=== PATIENT | male | born 1970 | race Caucasian/White ===

== ENCOUNTER → 2024-03-20 16:12 | Outpatient (REF) | payer BC, SELFPAY | LOC: RAD 16:12 | PROVIDERS: ATTENDING PHYSICIAN Nurse Practitioner | DX: R63.4 Abnormal weight loss (principal); R19.8 Other specified symptoms and signs involving the digestive system and abdomen; R10.32 Left lower quadrant pain | CPT/HCPCS: 74177; Q9967 ==

== ENCOUNTER 2024-04-30 06:24 | Day surgery (SDC) | payer BC, SELFPAY ==
[2024-04-30 08:38] LABS: COVID-19 Antigen Negative (Negative)
== END 2024-04-30 10:59 | disposition home or self-care (01) ==
LOC: GI 06:24
PROVIDERS: ATTENDING PHYSICIAN Internal Medicine Gastroenterology; FAMILY PHYSICIAN Nurse Practitioner
DX: D12.3 Benign neoplasm of transverse colon (principal); K57.30 Diverticulosis of large intestine without perforation or abscess without bleeding; K64.8 Other hemorrhoids; R10.32 Left lower quadrant pain; R63.4 Abnormal weight loss; R19.4 Change in bowel habit
CPT/HCPCS: 45385; 88305; 87502; 87811

== ENCOUNTER → 2024-05-03 08:16 | Outpatient (REF) | payer BC, SELFPAY | LOC: RAD 08:16 | PROVIDERS: ATTENDING PHYSICIAN Nurse Practitioner | DX: Z72.0 Tobacco use (principal); R61 Generalized hyperhidrosis | CPT/HCPCS: 71046 ==

== ENCOUNTER 2024-05-14 06:14 | Day surgery (SDC) | payer BC, SELFPAY | END 2024-05-14 11:30 | disposition home or self-care (01) | LOC: GI 06:14 | PROVIDERS: ATTENDING PHYSICIAN Internal Medicine Gastroenterology | DX: R12 Heartburn (principal); R63.4 Abnormal weight loss; K22.2 Esophageal obstruction; K44.9 Diaphragmatic hernia without obstruction or gangrene; K21.00 Gastro-esophageal reflux disease with esophagitis, without bleeding; K22.70 Barrett's esophagus without dysplasia; K63.9 Disease of intestine, unspecified | CPT/HCPCS: 43239; 88305 ==